=== PATIENT | female | born 1955 | race Caucasian/White ===

== ENCOUNTER → 2017-11-09 | Outpatient (CLI) | payer BC ==
[2017-11-11 15:08] LABS: HPV 16 Negative (Negative); HPV 18 Negative (Negative); HPV OTHER HR TYPES Negative (Negative)
== END ==
LOC: LAB 15:49 → LAB SHORT 15:49
PROVIDERS: Obstetrics & Gynecology
DX: Z01.419 Encounter for gynecological examination (general) (routine) without abnormal findings (principal)
CPT/HCPCS: 87624; G0123

== ENCOUNTER 2018-10-16 08:39 | Day surgery (SDC) | payer BC ==
[~2018-10-16] VITALS: Ht 170.2 cm; Wt 78.5 kg
[2018-10-16] MEDS ORDERED: LOSARTAN-HCTZ1 EACH (10:27)
[2018-10-16] MEDS ORDERED: MESA250ER (10:28)
--- NOTE | 2018-10-16 10:52 | NUR ---
10/16/18 1052 Jasmin Singleton PT UPDATED REGARDING THE DELAY IN HER ROOM. WARM BLANKETS OFFERRED. CALL LIGHT IN REACH.
== END 2018-10-16 12:55 | disposition home or self-care (01) ==
LOC: ORSCSDS 08:39
PROVIDERS: Student in an Organized Health Care Education/Training Program
PROC: 0DBE8ZX Excision of Large Intestine, Via Natural or Artificial Opening Endoscopic, Diagnostic (ICD-10-PCS; principal; 2018-10-16 10:15)
PROC: 0DBK8ZX Excision of Ascending Colon, Via Natural or Artificial Opening Endoscopic, Diagnostic (ICD-10-PCS; principal; 2018-10-16 10:15)
DX: K51.90 Ulcerative colitis, unspecified, without complications (principal); D12.2 Benign neoplasm of ascending colon; I10 Essential (primary) hypertension; Z87.891 Personal history of nicotine dependence; Z79.899 Other long term (current) drug therapy
CPT/HCPCS: 88305; J2704; J7120

== ENCOUNTER 2020-06-05 08:35 | Day surgery (SDC) | payer BC ==
[~2020-06-05] VITALS: Ht 170.2 cm; Wt 83.6 kg
[~2020-06-05 08:35] MED LIST: ASACOL HD800 MG PO; LOSA50 PO; LOSARTAN-HCTZ1 EACH; MAGNESIUM250 MG PO; MESA250ER; MESALAMINE4 GM/60 M2 PR; VITAMIN D325 MC3 PO; [UNRECOGNIZED DRUG - OTHER] PO
--- NOTE | 2020-06-05 11:18 | NUR ---
06/05/20 1118 ANJANA SORIANO 4ML SALINE INJECTED FOR POLYPECTOMY
== END 2020-06-05 11:24 | disposition home or self-care (01) ==
LOC: ORSCSDS 08:35
PROVIDERS: Student in an Organized Health Care Education/Training Program
PROC: 0DBH8ZX Excision of Cecum, Via Natural or Artificial Opening Endoscopic, Diagnostic (ICD-10-PCS; principal; 2020-06-05 10:00)
PROC: 0DBE8ZX Excision of Large Intestine, Via Natural or Artificial Opening Endoscopic, Diagnostic (ICD-10-PCS; principal; 2020-06-05 10:00)
DX: K51.90 Ulcerative colitis, unspecified, without complications (principal); D12.0 Benign neoplasm of cecum; I10 Essential (primary) hypertension; Z79.899 Other long term (current) drug therapy
CPT/HCPCS: 88305; J2704; J7120

== ENCOUNTER → 2021-01-15 | Outpatient (CLI) | payer BC ==
[2021-01-19 14:11] LABS: HPV 16 Negative (Negative); HPV 18 Negative (Negative); HPV OTHER HR TYPES Negative (Negative)
== END ==
LOC: LAB 14:00 → LAB SHORT 14:00
PROVIDERS: Family Medicine
DX: Z01.419 Encounter for gynecological examination (general) (routine) without abnormal findings (principal); Z88.2 Allergy status to sulfonamides
CPT/HCPCS: 87624; G0123